=== PATIENT | female | born 1945 | race Two or more races ===

== ENCOUNTER 2020-02-11 14:45 | Outpatient (CLI) | payer MEDICARE | END 2020-02-11 14:46 | disposition critical access hospital (66) | LOC: EMS 14:45 | PROVIDERS: ATTEND Surgery | DX: R47.9 Unspecified speech disturbances (principal); R26.9 Unspecified abnormalities of gait and mobility | CPT/HCPCS: A0425; A0429 ==

== ENCOUNTER 2020-02-11 15:04 | Emergency (ER) | payer MEDICARE ==
[2020-02-11] MEDS ORDERED: IOVERSOL 320 100 ML VIAL IVP ONE ×2 (15:28→15:59)
--- NOTE | 2020-02-11 15:28 | ED Physician Documentation ---
History of Present Illness - Stated complaint Stated Complaint: SLURRED SPEECH - History obtained from History obtained from: Patient - History of Present Illness Timing: Today Pain level max: 0 Pain level now: 0 - Additonal information Additional information: 74-year-old female with a history of hypertension and COPD. She states that she does not take any medication at home because she does not like taking medication. She was having an argument today with her significant other when she developed a aphasia and states that she was slurring her speech like she was a drunken skeet operator. She states that this lasted for approximately an hour. She states that she has been having difficulty walking with her balance for the past several weeks. No numbness or tingling. No focal weakness. No facial droop. Currently asymptomatic. Review of Systems Ten Systems: 10 systems reviewed and negative Constitutional: denies: Fever, Chills Throat: denies: Sore throat Cardiac: denies: Chest pain / pressure Respiratory: denies: Cough : denies: Dysuria Skin: denies: Rash Musculoskeletal: denies: Neck pain, Back pain Neurologic: denies: Headache PD PAST MEDICAL HISTORY - Past Medical History Cardiovascular: Hypertension Respiratory: COPD - Present Medications Home Medications: Ambulatory Orders Medication Instructions Recorded Confirmed No Known Home Medications 02/11/20 02/11/20 - Allergies Allergies/Adverse Reactions: Allergies Allergy/AdvReac Type Severity Reaction Status Date / Time codeine Allergy Unknown Verified 02/11/20 15:21 - Living Situation Living Situation: reports: With family Living Arrangement: reports: At home - Social History Does the pt smoke?: Yes Smoking Status: Current every day smoker - Family History Family history: reports: Non contributory PD ED PE NORMAL - Vitals Vital signs reviewed: Yes - General General: Alert and oriented X 3, No acute distress, Well developed/nourished - HEENT HEENT: Moist mucous membranes, Pharynx benign - Neck Neck: Supple, no meningeal sign - Cardiac Cardiac: RRR - Respiratory Respiratory: No respiratory distress, Clear bilaterally - Abdomen Abdomen: Soft, Non tender, Non distended - Derm Derm: Warm and dry - Extremities Extremities: No deformity, No edema - Neuro Neuro: Alert and oriented X 3, 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, No motor deficit, No sensory deficit, Normal speech Eye Opening: Spontaneous Motor: Obeys Commands Verbal: Oriented GCS Score: 15 - Psych Psych: Normal mood, Normal affect Results - Vitals Vitals: Vital Signs - 24 hr 02/11/20 02/11/20 02/11/20 15:21 15:55 16:25 Temperature 36.9 C Heart Rate 86 80 79 Respiratory 20 13 21 Rate Blood Pressure 213/99 H 211/96 H 177/82 H O2 Saturation 99 99 96 02/11/20 02/11/20 16:30 17:00 Temperature 36.9 C Heart Rate 83 75 Respiratory 17 16 Rate Blood Pressure 177/93 H 190/94 H O2 Saturation 100 99 Oxygen O2 Source Room air - EKG (time done) 1510 Rate: Rate (enter#) (89) Rhythm: NSR, Other (PVC) [place]: Normal Intervals: Normal NM QRS: Normal Ischemia: Normal ST segments - Labs Labs: Laboratory Tests 02/11/20 02/11/20 02/11/20 15:29 16:10 16:10 WBC 4.7 L RBC 5.61 H Hgb 13.6 Hct 38.4 MCV 68.4 L MCH 24.2 L MCHC 35.4 RDW 15.6 H Plt Count 145 Neut # (Auto) Not Reportable Lymph # (Auto) Not Reportable [place] # (Auto) Not Reportable Eos # (Auto) Not Reportable Baso # (Auto) Not Reportable Absolute Nucleated RBC Not Reportable Total Counted 100 Band Neuts % (Manual) 0 Abnorm Lymph % (Manual) 0 Nucleated RBC % Not Reportable Neutrophils # (Manual) 1.3 L Lymphocytes # (Manual) 3.0 Monocytes # (Manual) 0.2 Eosinophils # (Manual) 0.1 Basophils # (Manual) 0.1 Differential Comment MANUAL DIFFERENTIAL Manual Slide Review Indicated WBC Morphology NORMAL APPEARANCE Platelet Estimate NORMAL (130-450,000) Platelet Morphology NORMAL APPEARANCE RBC Morph Micro Appear NORMAL APPEARANCE PT 12.4 INR 1.1 APTT 36.4 H Sodium Potassium Chloride Carbon Dioxide Anion Gap BUN Creatinine Estimated GFR (MDRD) Glucose Calcium Total Bilirubin AST ALT Alkaline Phosphatase Total Protein Albumin Globulin Albumin/Globulin Ratio Lipase Urine Color YELLOW Urine Clarity CLEAR Urine pH 7.0 Ur Specific [place] <=1.005 Urine Protein NEGATIVE Urine Glucose (UA) NEGATIVE Urine Ketones NEGATIVE Urine Occult Blood TRACE-INTA Urine Nitrite NEGATIVE Urine Bilirubin NEGATIVE Urine Urobilinogen 0.2 (NORMAL) Ur Leukocyte Esterase SMALL H Urine RBC 0-5 Urine WBC 4-5 Ur Squamous Epith Cells MANY Squamous H Urine Bacteria Rare Ur Microscopic Review INDICATED Urine Culture Comments NOT INDICATED 02/11/20 16:10 WBC RBC Hgb Hct MCV MCH MCHC RDW Plt Count Neut # (Auto) Lymph # (Auto) [place] # (Auto) Eos # (Auto) Baso # (Auto) Absolute Nucleated RBC Total Counted Band Neuts % (Manual) Abnorm Lymph % (Manual) Nucleated RBC % Neutrophils # (Manual) Lymphocytes # (Manual) Monocytes # (Manual) Eosinophils # (Manual) Basophils # (Manual) Differential Comment Manual Slide Review WBC Morphology Platelet Estimate Platelet Morphology RBC Morph Micro Appear PT INR APTT Sodium 139 Potassium 3.6 Chloride 101 Carbon Dioxide 28 Anion Gap 10.0 BUN 13 Creatinine 0.6 Estimated GFR (MDRD) 97 Glucose 106 H Calcium 8.8 Total Bilirubin 0.9 AST 13 ALT 11 Alkaline Phosphatase 75 Total Protein 7.2 Albumin 4.1 Globulin 3.1 Albumin/Globulin Ratio 1.3 Lipase 21 L Urine Color Urine Clarity Urine pH Ur Specific [place] Urine Protein Urine Glucose (UA) Urine Ketones Urine Occult Blood Urine Nitrite Urine Bilirubin Urine Urobilinogen Ur Leukocyte Esterase Urine RBC Urine WBC Ur Squamous Epith Cells Urine Bacteria Ur Microscopic Review Urine Culture Comments - Rads (name of study) CTA head Radiology: Prelim report reviewed, EMP read contemporaneously, See rad report CTA neck Radiology: Prelim report reviewed, EMP read contemporaneously, See rad report PD MEDICAL DECISION MAKING - ED course Complexity details: reviewed results, re-evaluated patient, considered differential, d/w patient ED course: Patient with symptoms of a TIA today. No acute findings on head CT, angiogram of the head and/or neck. Blood pressure decreased on its own. Given aspirin. She will start on a baby aspirin daily. She refuses to stay in the hospital for further work-up. MRI is not available here today, therefore she would need to be transferred and she does not want this either. Patient states that she will follow-up with her doctor on Thursday for an expedited work-up. Her ABCD 2 score is 4. Patient understands the risks of not staying in the hospital and accepts these risks. Patient counseled regarding signs and symptoms for which I believe and urgent re-evaluation would be necessary. Patient with good understanding of and agreement to plan and is comfortable going home at this time This document was made in part using voice recognition software. While efforts are made to proofread this document, sound alike and grammatical errors may occur. Urinalysis appears contaminated. No UTI symptoms Departure - Departure Disposition: 01 Home, Self Care Clinical Impression: Stroke-like symptoms, TIA (transient ischemic attack) Condition: Good Instructions: ED Transient Ischemic Attack Follow-Up: Rashida Gruber PA-C [Provider Admit Priv/Credential] - Within 3 Days Comments: You need to have an MRI performed as well as an echocardiogram of your heart. You need to start on a baby aspirin, 81 mg, daily. Return immediately for any recurrence or worsening of symptoms. You have chosen not to stay in the hospital tonight or be transferred to another facility for an expedited work-up. You do understand that there is a risk that a stroke could occur within the next few days while we are completing your work-up. Discharge Date/Time: 02/11/20 17:16 NIHSS - Time Time: 15:20 - Level of Consciousness Level of consciousness: (0) Alert, Keenly responsive LOC Questions: (0) Answers both Q's correct LOC Commands: (0) Performs both correctly - Gaze Best Gaze: (0) Normal - Visual Visual: (0) No loss - Facial Palsy Facial Palsy: (0) Normal, symmetrical movement - Motor Arms (both separate) Motor Arm (right): (0) No drift Motor Arm (left): (0) No drift - Motor Legs (both separate) Motor Leg (right): (0) No drift Motor Leg (left): (0) No drift - Limb Ataxia Limb Ataxia: (0) Absent - Sensory Sensory: (0) Normal - Best Language Best Language: (0) No aphasia - Dysarthria Dysarthria: (0) Normal - Extinction and Inattention (formally neg Extinction and inattention: (0) No abnormality - Total Score/Results Total Score/Result: 0
[2020-02-11 15:40] LABS: BILIRUBIN,URINE NEGATIVE (NEGATIVE); GLUCOSE, URINE (UA) NEGATIVE (NEGATIVE); KETONES,URINE (UA) NEGATIVE (NEGATIVE); LEUKOCYTE ESTERASE, URINE SMALL (NEGATIVE); NITRITE,URINE NEGATIVE (NEGATIVE); OCCULT BLOOD,URINE TRACE-INTA (NEGATIVE); PROTEIN,URINE NEGATIVE (NEGATIVE); UROBILINOGEN,URINE 0.2 (NORMAL) E.U./dL (NORMAL)
[2020-02-11 15:41] LABS: CLARITY,URINE CLEAR (CLEAR)
[2020-02-11 15:54] LABS: BACTERIA,URINE Rare /HPF (None Seen); RBC,URINE 0-5 /HPF (0-5); SQUAMOUS EPITHELIAL CELL,UR MANY Squamous (<= Few)
[2020-02-11 16:17] LABS: BASOPHILS % (AUTO) 1.1 %; HGB - HEMOGLOBIN 13.6 g/dL (12.0-16.0); LYMPHOCYTES % (AUTO) 59.3 %; MEAN CORPUSCULAR HEMOGLOBIN 24.2 pg (27.0-31.0); MEAN CORPUSCULAR HGB CONC 35.4 g/dL (32.0-36.0); MEAN CORPUSCULAR VOLUME 68.4 fL (81.0-99.0); MONOCYTES % (AUTO) 12.5 %; NEUTROPHILS % (AUTO) 24.1 %; PLT - PLATELET COUNT 145 10^3/uL (130-450); RED BLOOD COUNT 5.61 10^6/uL (4.20-5.40); RED CELL DISTRIBUTION WIDTH 15.6 % (12.0-15.0); WHITE BLOOD COUNT 4.7 x10^3/uL (4.8-10.8)
[2020-02-11 16:19] LABS: INR 1.1 (0.8-1.2); PT - PROTHROMBIN TIME 12.4 secs (9.9-12.6)
[2020-02-11 16:23] LABS: ABNORMAL LYMPHS % (MANUAL) 0 %; BAND NEUTROPHILS % (MANUAL) 0 %
[2020-02-11 16:28] LABS: ALBUMIN 4.1 g/dL (3.2-5.5); ALBUMIN/GLOBULIN RATIO 1.3 (1.0-2.2); BILIRUBIN,TOTAL 0.9 mg/dL (0.2-1.0); CALCIUM 8.8 mg/dL (8.5-10.3); CREATININE 0.6 mg/dL (0.4-1.0); TOTAL PROTEIN 7.2 g/dL (6.7-8.2)
[2020-02-11 16:31] LABS: PARTIAL THROMBOPLASTIN TIME 36.4 secs (24.9-33.3)
[2020-02-11 16:32] LABS: BASOPHILS # (MANUAL) 0.1 10^3/uL (0-0.1); BASOPHILS % (MANUAL) 2 %; DIFFERENTIAL COMMENT MANUAL DIFFERENTIAL; EOSINOPHILS # (MANUAL) 0.1 10^3/uL (0-0.7); LYMPHOCYTES % (MANUAL) 63 %; MONOCYTES # (MANUAL) 0.2 10^3/uL (0.0-1.0); PLATELET ESTIMATE, MANUAL NORMAL (130-450,000) (NORMAL); PLATELET MORPHOLOGY NORMAL APPEARANCE (NORMAL); RBC MORPHOLOGY (MULTIPLE) NORMAL APPEARANCE (NORMAL)
--- NOTE | 2020-02-11 16:38 | CT Report ---
Reason: slurred speech x 1 hour, ataxia Procedure Date: 02/11/2020 Accession Number: [id number] / [id number] Procedure: CT - ANGIO NECK W CPT Code: Final Report FULL RESULT: EXAM: CT ANGIOGRAM HEAD AND NECK. CT SCAN HEAD WITHOUT AND WITH CONTRAST. EXAM DATE: 02/11/2020 03:58 PM. CLINICAL HISTORY: Slurred speech x 1 hour, ataxia. COMPARISON: None available. TECHNIQUE: Routine axial helical CTA imaging was performed from the aortic arch through the [place] of [place]. Routine axial CT imaging of the head was performed prior to and following contrast administration. Reconstructions: Routine multiplanar 3D MIP reconstructions. IV contrast: 80 cc of Optiray 320. NASCET Criteria are used for stenosis measurements. In accordance with CT protocol optimization, one or more of the following dose reduction techniques were utilized for this exam: automated exposure control, adjustment of mA and/or KV based on patient size, or use of iterative reconstructive technique. FINDINGS: Non Contrast Head: There is no mass, mass effect, midline shift or abnormal extraaxial fluid collection. Size and configuration of the ventricles appear normal. There is no intracranial hemorrhage. Gillespie white matter differentiation is maintained. Ill-defined hypodensities in the periventricular cerebral white matter, nonspecific but most commonly represent chronic microvascular angiopathy. Brain stem and cerebellum appear unremarkable. Calvarium and skull base appear intact and normal. Orbits and extracranial soft tissue appear unremarkable. Paranasal sinuses and mastoid air cells appear well aerated. Post contrast CT Head: No abnormal enhancement. Gillespie white matter differentiation appear preserved. Dural venous sinus and deep cerebral veins appear normal. CTA HEAD: Anterior Circulation: There are 2 mm infundibuli for bilateral ophthalmic arteries. Subtle inferiorly projecting shallow 1.1 mm aneurysm from the distal M1 segment right MCA (image 94 series 15) with a 2 mm neck. Inferiorly projecting 2 mm saccular aneurysm projecting from the communicating segment right ICA ( sagittal image 86 series 15). The internal carotid arteries (ICA), middle cerebral arteries (MCA), and anterior cerebral arteries (CHRISTINA) are patent bilaterally. The anterior communicating artery (A-COM) appears patent. No other aneurysms, stenoses, or anatomic anomalies evident. Posterior Circulation: Moderate, 50% stenosis P1 P2 junction right RN ACLS with distal reconstitution. The superior vertebral artery, basilar, and posterior cerebral arteries (RN ACLS) are patent. Otherwise No aneurysms, stenoses, or anomalies evident. The posterior communicating arteries (P-COM) are patent on the left, hypoplastic on the right (-type left RN ACLS). CTA NECK: Right Carotid: The common carotid, internal carotid, and external carotid arteries are widely patent. No dissection, significant atherosclerotic plaque, or calcification identified. No significant stenosis by NASCET criteria. Left Carotid: The common carotid, internal carotid, and external carotid arteries are widely patent. No dissection, significant atherosclerotic plaque, or calcification identified. No significant stenosis by NASCET criteria. Vertebrals: The vertebrobasilar system shows no stenosis, dissection, aneurysm, or significant atherosclerotic disease. Visible aortic arch and pulmonary artery appear normal. Other: Multilevel degenerative changes of the cervical spine most pronounced at C4-C5, C5-C6. Mild canal narrowing at C5-C6. Emphysematous changes of the visible lungs. IMPRESSION: CT SCAN HEAD: 1. Mild diffuse cerebral volume loss. 2. Chronic microvascular white matter changes. 3. No intercranial hemorrhage, midline shift or hydrocephalus. 4. No abnormal enhancement. Normal enhancement within the dural venous sinus. CT ANGIOGRAM NECK: 1. Atherosclerotic calcifications of bilateral carotid bifurcations without significant stenosis. 2. No significant cervical carotid or vertebral artery stenosis. No evidence for dissection. 3. Centrilobular emphysema of the visible lungs. CT ANGIOGRAM HEAD: 1. Moderate 50% stenosis P1 P2 junction right RN ACLS. -type left RN ACLS. 2. Inferiorly projecting 2 mm saccular aneurysm from the communicating segment of the right ICA. More subtle 1 mm wide neck aneurysm inferiorly projecting from the distal M1 segment right MCA. 3. No significant anterior circulation stenosis. No evidence for large vessel occlusion. RADIA
--- NOTE | 2020-02-11 16:38 | CT Report ---
Reason: slurred speech x 1 hour, ataxia Procedure Date: 02/11/2020 Accession Number: [id number] / [id number] Procedure: CT - ANGIO HEAD W/WO CPT Code: Final Report FULL RESULT: EXAM: CT ANGIOGRAM HEAD AND NECK. CT SCAN HEAD WITHOUT AND WITH CONTRAST. EXAM DATE: 02/11/2020 03:58 PM. CLINICAL HISTORY: Slurred speech x 1 hour, ataxia. COMPARISON: None available. TECHNIQUE: Routine axial helical CTA imaging was performed from the aortic arch through the [place] of [place]. Routine axial CT imaging of the head was performed prior to and following contrast administration. Reconstructions: Routine multiplanar 3D MIP reconstructions. IV contrast: 80 cc of Optiray 320. NASCET Criteria are used for stenosis measurements. In accordance with CT protocol optimization, one or more of the following dose reduction techniques were utilized for this exam: automated exposure control, adjustment of mA and/or KV based on patient size, or use of iterative reconstructive technique. FINDINGS: Non Contrast Head: There is no mass, mass effect, midline shift or abnormal extraaxial fluid collection. Size and configuration of the ventricles appear normal. There is no intracranial hemorrhage. Gillespie white matter differentiation is maintained. Ill-defined hypodensities in the periventricular cerebral white matter, nonspecific but most commonly represent chronic microvascular angiopathy. Brain stem and cerebellum appear unremarkable. Calvarium and skull base appear intact and normal. Orbits and extracranial soft tissue appear unremarkable. Paranasal sinuses and mastoid air cells appear well aerated. Post contrast CT Head: No abnormal enhancement. Gillespie white matter differentiation appear preserved. Dural venous sinus and deep cerebral veins appear normal. CTA HEAD: Anterior Circulation: There are 2 mm infundibuli for bilateral ophthalmic arteries. Subtle inferiorly projecting shallow 1.1 mm aneurysm from the distal M1 segment right MCA (image 94 series 15) with a 2 mm neck. Inferiorly projecting 2 mm saccular aneurysm projecting from the communicating segment right ICA ( sagittal image 86 series 15). The internal carotid arteries (ICA), middle cerebral arteries (MCA), and anterior cerebral arteries (CHRISTINA) are patent bilaterally. The anterior communicating artery (A-COM) appears patent. No other aneurysms, stenoses, or anatomic anomalies evident. Posterior Circulation: Moderate, 50% stenosis P1 P2 junction right [employer] with distal reconstitution. The superior vertebral artery, basilar, and posterior cerebral arteries ([employer]) are patent. Otherwise No aneurysms, stenoses, or anomalies evident. The posterior communicating arteries (P-COM) are patent on the left, hypoplastic on the right (-type left [employer]). CTA NECK: Right Carotid: The common carotid, internal carotid, and external carotid arteries are widely patent. No dissection, significant atherosclerotic plaque, or calcification identified. No significant stenosis by NASCET criteria. Left Carotid: The common carotid, internal carotid, and external carotid arteries are widely patent. No dissection, significant atherosclerotic plaque, or calcification identified. No significant stenosis by NASCET criteria. Vertebrals: The vertebrobasilar system shows no stenosis, dissection, aneurysm, or significant atherosclerotic disease. Visible aortic arch and pulmonary artery appear normal. Other: Multilevel degenerative changes of the cervical spine most pronounced at C4-C5, C5-C6. Mild canal narrowing at C5-C6. Emphysematous changes of the visible lungs. IMPRESSION: CT SCAN HEAD: 1. Mild diffuse cerebral volume loss. 2. Chronic microvascular white matter changes. 3. No intercranial hemorrhage, midline shift or hydrocephalus. 4. No abnormal enhancement. Normal enhancement within the dural venous sinus. CT ANGIOGRAM NECK: 1. Atherosclerotic calcifications of bilateral carotid bifurcations without significant stenosis. 2. No significant cervical carotid or vertebral artery stenosis. No evidence for dissection. 3. Centrilobular emphysema of the visible lungs. CT ANGIOGRAM HEAD: 1. Moderate 50% stenosis P1 P2 junction right [employer]. -type left [employer]. 2. Inferiorly projecting 2 mm saccular aneurysm from the communicating segment of the right ICA. More subtle 1 mm wide neck aneurysm inferiorly projecting from the distal M1 segment right MCA. 3. No significant anterior circulation stenosis. No evidence for large vessel occlusion. RADIA
[2020-02-11] MEDS ORDERED: ASPIRIN CHEW 81 MG TABLET PO STA (17:02)
[2020-02-11 17:05] VITALS: BP 190/94
== END 2020-02-11 17:16 | disposition home or self-care (01) ==
LOC: EDUNIT# → ED 15:04
DX: G45.9 Transient cerebral ischemic attack, unspecified (principal); I49.3 Ventricular premature depolarization; I10 Essential (primary) hypertension; J44.9 Chronic obstructive pulmonary disease, unspecified; F17.200 Nicotine dependence, unspecified, uncomplicated; Z91.14 Patient's other noncompliance with medication regimen
CPT/HCPCS: 36415; 70496; 70498; 80053; 81001; 83690; 85025; 85610; 85730; 93005; 99284; A9270; Q9967; 81003; 87086

== ENCOUNTER 2020-03-21 07:46 | Outpatient (CLI) | payer MEDICARE ==
--- NOTE | 2020-03-21 09:47 | MRI Report ---
PROCEDURE: Brain W/O INDICATIONS: TIA TECHNIQUE: Noncontrast axial T1 spin echo, axial T2 fast spin echo, sagittal and axial FLAIR, coronal T2 fast sp in echo, axial gradient echo, axial diffusion and ADC through the brain. COMPARISON: None. FINDINGS: Image quality: Excellent. CSF Spaces: Basal cisterns are patent. No extra-axial fluid collections. Ventricles are normal in size and shape. Brain: There is global cerebral volume loss with passive expansion of the ventricles and extra-axial spaces. Severe chronic microvascular ischemic changes are present, manifest as diffuse and confluent FLAIR/T2 hyperintense signal throughout the subcortical, deep, and periventricular white matter of janna th cerebral hemispheres. In addition, there is subtle increase in the FLAIR signal of the insular cor tices and subcortical white matter, as well as the left greater than right mesial temporal lobe allen x and subcortical white matter. No restricted diffusion to indicate recent ischemia. No abnormal brai n parenchymal susceptibility. The major intracranial vascular flow-related signal voids are maintaine d. Skull and face: Calvarium has normal marrow signal. Orbits appear normal. Sinuses: Sinuses and mastoids are clear. IMPRESSION: 1. Increased FLAIR signal of the cortices and subcortical white matter in the left greater than right insulae and mesial temporal lobes. This is a nonspecific finding, but in the appropriate clinical se tting could represent herpetic encephalitis, limbic encephalitis, Alzheimer disease, or frontotempora l dementia. 2. Global cerebral volume loss with advanced/severe chronic microvascular ischemic change. 3. No acute ischemia. Reviewed by: Jaya Moreira MD on 03/21/2020 9:46 AM PDT Approved by: Jaya Moreira MD on 03/21/2020 9:46 AM PDT Station ID: [id number]
== END 2020-03-21 07:47 | disposition home or self-care (01) ==
LOC: DI 07:46
PROVIDERS: ATTEND Family Medicine
DX: G45.9 Transient cerebral ischemic attack, unspecified (principal); R93.89 Abnormal findings on diagnostic imaging of other specified body structures
CPT/HCPCS: 70551; 93306

== ENCOUNTER 2020-12-27 08:34 | Outpatient (CLI) | payer MEDICARE ==
[2020-12-27 12:11] LABS: ALBUMIN 4.5 g/dL (3.2-5.5); ALBUMIN/GLOBULIN RATIO 1.6 (1.0-2.2); ALKALINE PHOSPHATASE 66 IU/L (42-121); ALT ALANINE AMINOTRANSFERASE 15 IU/L (10-60); AST ASPARTATE AMINOTRANSFERASE 20 IU/L (10-42); BILIRUBIN,TOTAL 1.1 mg/dL (0.2-1.0); BUN - BLOOD UREA NITROGEN 9 mg/dL (6-20); CALCIUM 9.7 mg/dL (8.5-10.3); CARBON DIOXIDE - CO2 33 mmol/L (21-32); CHLORIDE 102 mmol/L (101-111); CHOL/HDL RATIO 3.1 (<4.4); CHOLESTEROL 203 mg/dL; CREATININE 0.6 mg/dL (0.4-1.0); GFR - MDRD 97 (>89); GLUCOSE 95 mg/dL (70-100); HDL CHOLESTEROL 66 mg/dL; LDL CHOLESTEROL,CALCULATED 118 mg/dL; LDL/HDL RATIO 1.8 (<4.4); POTASSIUM 3.5 mmol/L (3.5-5.0); SODIUM 142 mmol/L (135-145); TOTAL PROTEIN 7.4 g/dL (6.7-8.2); TRIGLYCERIDES 94 mg/dL; VLDL CHOLESTEROL 19 mg/dL
[2020-12-27 12:18] LABS: THYROID STIMULATING HORMONE 0.55 uIU/mL (0.34-5.60)
[2020-12-27 12:25] LABS: ESTIMATED AVERAGE GLUCOSE 111 mg/dL (70-100); HEMOGLOBIN A1c% 5.5 % (4.27-6.07)
[2020-12-27 13:13] LABS: BASOPHILS % (AUTO) 0.8 %; EOSINOPHILS # (AUTO) 0.2 10^3/uL (0.0-0.7); EOSINOPHILS % (AUTO) 5.2 %; HCT - HEMATOCRIT 39.7 % (37.0-47.0); LYMPHOCYTES # (AUTO) 2.2 10^3/uL (1.5-3.5); LYMPHOCYTES % (AUTO) 56.9 %; MEAN CORPUSCULAR HEMOGLOBIN 24.3 pg (27.0-31.0); MEAN CORPUSCULAR HGB CONC 35.3 g/dL (32.0-36.0); MEAN CORPUSCULAR VOLUME 68.8 fL (81.0-99.0); MONOCYTES # (AUTO) 0.6 10^3/uL (0.0-1.0); MONOCYTES % (AUTO) 15.3 %; NEUTROPHILS # (AUTO) 0.8 10^3/uL (1.5-6.6); NEUTROPHILS % (AUTO) 21.8 %; PLT - PLATELET COUNT 157 10^3/uL (130-450); RED BLOOD COUNT 5.77 10^6/uL (4.20-5.40); RED CELL DISTRIBUTION WIDTH 15.9 % (12.0-15.0); WHITE BLOOD COUNT 3.9 x10^3/uL (4.8-10.8)
== END 2020-12-27 08:35 | disposition home or self-care (01) ==
LOC: LAB.N 08:34
PROVIDERS: ATTEND Family Medicine
DX: I10 Essential (primary) hypertension (principal); F41.9 Anxiety disorder, unspecified; K21.9 Gastro-esophageal reflux disease without esophagitis; M50.30 Other cervical disc degeneration, unspecified cervical region; R73.9 Hyperglycemia, unspecified
CPT/HCPCS: 36415; 80053; 80061; 83036; 83721; 84443; 85025

== ENCOUNTER 2021-07-15 07:42 | Outpatient (CLI) | payer MEDICARE ==
[2021-07-15 12:22] LABS: BASOPHILS % (AUTO) 1.6 %; EOSINOPHILS % (AUTO) 5.5 %; HCT - HEMATOCRIT 39.6 % (37.0-47.0); HGB - HEMOGLOBIN 13.8 g/dL (12.0-16.0); LYMPHOCYTES % (AUTO) 47.4 %; MEAN CORPUSCULAR HEMOGLOBIN 24.2 pg (27.0-31.0); MEAN CORPUSCULAR HGB CONC 34.8 g/dL (32.0-36.0); MEAN CORPUSCULAR VOLUME 69.4 fL (81.0-99.0); MONOCYTES % (AUTO) 15.4 %; NEUTROPHILS % (AUTO) 29.9 %; PLT - PLATELET COUNT 177 10^3/uL (130-450); RED BLOOD COUNT 5.71 10^6/uL (4.20-5.40); RED CELL DISTRIBUTION WIDTH 16.6 % (12.0-15.0); WHITE BLOOD COUNT 4.9 x10^3/uL (4.8-10.8)
[2021-07-15 12:27] LABS: ABNORMAL LYMPHS % (MANUAL) 0 %
[2021-07-15 12:34] LABS: ALBUMIN 4.5 g/dL (3.2-5.5); ALBUMIN/GLOBULIN RATIO 1.7 (1.0-2.2); BILIRUBIN,TOTAL 1.4 mg/dL (0.2-1.0); CALCIUM 9.6 mg/dL (8.5-10.3); CREATININE 0.6 mg/dL (0.4-1.0); POTASSIUM 3.4 mmol/L (3.5-5.0); TOTAL PROTEIN 7.2 g/dL (6.7-8.2)
[2021-07-15 13:01] LABS: BAND NEUTROPHILS % (MANUAL) 1 %; BASOPHILS # (MANUAL) 0.1 10^3/uL (0-0.1); BASOPHILS % (MANUAL) 2 %; EOSINOPHILS # (MANUAL) 0.3 10^3/uL (0-0.7); LYMPHOCYTES # (MANUAL) 2.9 10^3/uL (1.5-3.5); LYMPHOCYTES % (MANUAL) 46 %; MONOCYTES # (MANUAL) 0.3 10^3/uL (0.0-1.0); NEUTROPHILS # (MANUAL) 1.3 10^3/uL (1.5-6.6); REACTIVE LYMPHS % (MANUAL) 14 %
[2021-07-15 13:05] LABS: PLATELET ESTIMATE, MANUAL NORMAL (130-450,000) (NORMAL); PLATELET MORPHOLOGY 2+ GIANT PLATELETS (NORMAL); WBC MORPHOLOGY (MULTIPLE) NORMAL APPEARANCE (NORMAL)
[2021-07-15 13:07] LABS: DIFFERENTIAL COMMENT MANUAL DIFFERENTIAL
== END 2021-07-15 07:43 | disposition home or self-care (01) ==
LOC: LAB.N 07:42
PROVIDERS: ATTEND Family Medicine
DX: R53.83 Other fatigue (principal); R53.81 Other malaise; I10 Essential (primary) hypertension; Z85.118 Personal history of other malignant neoplasm of bronchus and lung
CPT/HCPCS: 36415; 80053; 85025

== ENCOUNTER 2021-07-16 08:18 | Outpatient (CLI) | payer MEDICARE ==
--- NOTE | 2021-07-18 02:21 | XRAY Report ---
PROCEDURE: Lumbar Spine Complete INDICATIONS: PAIN TECHNIQUE: 5 views of the lumbar spine were acquired. Images became available for interpretation on 07/17/2021 COMPARISON: None. FINDINGS: Bones: 5 [id number] vertebrae are present. There is normal bony alignment. No vertebral body compression fractures. No suspicious bony lesions. Moderate to severe disc and foraminal narrowing are noted L4-5, moderate L5-S1. Nonbridging multilevel anterior osteophytes are present within the lo wer lumbar spine. Soft tissues: Overlying bowel gas pattern is normal. No suspicious soft tissue calcifications. IMPRESSION: Degenerative change most notable at L4-5, L5-S1. Reviewed by: Michelle Villa MD on 07/18/2021 1:21 AM PDT Approved by: Michelle Villa MD on 07/18/2021 1:21 AM PDT Station ID: [id number]
== END 2021-07-16 08:19 | disposition home or self-care (01) ==
LOC: DI.N 08:18
PROVIDERS: ATTEND Family Medicine
DX: M47.817 Spondylosis without myelopathy or radiculopathy, lumbosacral region (principal)

== ENCOUNTER 2021-10-11 07:50 | Outpatient (CLI) | payer MEDICARE ==
--- NOTE | 2021-10-11 17:12 | XRAY Report ---
PROCEDURE: Abdomen 2 View X-Ray INDICATIONS: ABD TENDERNESS, RIGHT LOWER QUAD TECHNIQUE: 1 view of the abdomen were acquired. COMPARISON: None FINDINGS: Surgical changes and devices: None. Bowel: No pneumoperitoneum. The bowel gas pattern is normal. Soft tissues: No masses; visualized solid organ contours appear normal in size. No suspicious abdom inal calcifications. Bones: No suspicious bony abnormalities. IMPRESSION: Moderate stool noted throughout the colon. Moderate amount of stool throughout the colon . No acute disease process. If there is is continued clinical concern for abdominal pathology includi ng appendicitis consider CT scan of the abdomen/pelvis for additional evaluation. Reviewed by: Taya Enrique MD, PhD on 10/11/2021 5:11 PM PST Approved by: Taya Enrique MD, PhD on 10/11/2021 5:11 PM PST Station ID: [id number]
== END 2021-10-11 07:51 | disposition home or self-care (01) ==
LOC: DI.N 07:50
PROVIDERS: ATTEND Family Medicine
DX: R10.813 Right lower quadrant abdominal tenderness (principal)

== ENCOUNTER 2022-02-17 08:00 | Outpatient (CLI) | payer MEDICARE ==
--- NOTE | 2022-02-17 11:56 | XRAY Report ---
PROCEDURE: Chest 2 View X-Ray INDICATIONS: POSSIBLE PNEUMONIA TECHNIQUE: 2 view(s) of the chest. COMPARISON: None. FINDINGS: Surgical changes and devices: None. Lungs and pleura: Pulmonary hyperinflation and chronic interstitial changes noted without focal infil trate, pneumothorax or pleural effusion. Mediastinum: Mediastinal contours are normal. Heart size is normal. Bones and chest wall: No suspicious bony abnormalities. Soft tissues appear unremarkable. Generali zed decreased osseous mineralization present. IMPRESSION: Hyperinflation and chronic interstitial changes Reviewed by: Ang Hoyos MD on 02/17/2022 10:55 AM AGNES Approved by: Ang Hoyos MD on 02/17/2022 10:55 AM [place] Station ID: [id number]
== END 2022-02-17 23:59 | disposition home or self-care (01) ==
LOC: DI.N 08:00
PROVIDERS: ATTEND Physician Assistant Medical
DX: J18.9 Pneumonia, unspecified organism (principal)

== ENCOUNTER 2022-04-11 07:10 | Outpatient (CLI) | payer MEDICARE ==
[2022-04-11 12:11] LABS: BASOPHILS # (AUTO) 0.1 10^3/uL (0.0-0.1); BASOPHILS % (AUTO) 1.2 %; EOSINOPHILS # (AUTO) 0.5 10^3/uL (0.0-0.7); EOSINOPHILS % (AUTO) 9.6 %; HCT - HEMATOCRIT 38.3 % (37.0-47.0); HGB - HEMOGLOBIN 13.5 g/dL (12.0-16.0); LYMPHOCYTES # (AUTO) 3.4 10^3/uL (1.5-3.5); LYMPHOCYTES % (AUTO) 60.4 %; MEAN CORPUSCULAR HEMOGLOBIN 24.4 pg (27.0-31.0); MEAN CORPUSCULAR HGB CONC 35.2 g/dL (32.0-36.0); MEAN CORPUSCULAR VOLUME 69.1 fL (81.0-99.0); MONOCYTES # (AUTO) 0.8 10^3/uL (0.0-1.0); MONOCYTES % (AUTO) 13.7 %; NEUTROPHILS # (AUTO) 0.8 10^3/uL (1.5-6.6); NEUTROPHILS % (AUTO) 14.9 %; PLT - PLATELET COUNT 217 10^3/uL (130-450); RED BLOOD COUNT 5.54 10^6/uL (4.20-5.40); RED CELL DISTRIBUTION WIDTH 16.4 % (12.0-15.0); WHITE BLOOD COUNT 5.6 x10^3/uL (4.8-10.8)
[2022-04-11 12:41] LABS: ESTIMATED AVERAGE GLUCOSE 111 mg/dL (70-100); HEMOGLOBIN A1c% 5.5 % (4.27-6.07)
[2022-04-11 12:42] LABS: ALBUMIN/GLOBULIN RATIO 1.4 (1.0-2.2); ALKALINE PHOSPHATASE 64 IU/L (42-121); ALT ALANINE AMINOTRANSFERASE 16 IU/L (10-60); AST ASPARTATE AMINOTRANSFERASE 21 IU/L (10-42); BILIRUBIN,TOTAL 1.5 mg/dL (0.2-1.0); BUN - BLOOD UREA NITROGEN 11 mg/dL (6-20); CALCIUM 9.4 mg/dL (8.5-10.3); CARBON DIOXIDE - CO2 32 mmol/L (21-32); CHLORIDE 102 mmol/L (101-111); CHOL/HDL RATIO 2.2 (<4.4); CHOLESTEROL 166 mg/dL; CREATININE 0.7 mg/dL (0.4-1.0); GFR - MDRD 81 (>89); GLUCOSE 91 mg/dL (70-100); HDL CHOLESTEROL 74 mg/dL; LDL CHOLESTEROL,CALCULATED 77 mg/dL; POTASSIUM 3.6 mmol/L (3.5-5.0); SODIUM 142 mmol/L (135-145); TOTAL PROTEIN 6.8 g/dL (6.7-8.2); TRIGLYCERIDES 77 mg/dL; VLDL CHOLESTEROL 15 mg/dL
[2022-04-11 12:43] LABS: THYROID STIMULATING HORMONE 0.75 uIU/mL (0.34-5.60)
== END 2022-04-11 07:11 | disposition home or self-care (01) ==
LOC: LAB.N 07:10
PROVIDERS: ATTEND Family Medicine
DX: I10 Essential (primary) hypertension (principal); K59.00 Constipation, unspecified; R73.9 Hyperglycemia, unspecified; J44.9 Chronic obstructive pulmonary disease, unspecified; F41.9 Anxiety disorder, unspecified; G45.9 Transient cerebral ischemic attack, unspecified; R00.2 Palpitations; M47.9 Spondylosis, unspecified
CPT/HCPCS: 36415; 80053; 80061; 83036; 83721; 84443; 85025

== ENCOUNTER 2023-02-25 08:03 | Outpatient (CLI) | payer MEDICARE ==
--- NOTE | 2023-02-25 13:12 | DEXA Report ---
PROCEDURE: Dexa Spine and/or Hip INDICATIONS: POST MENOPAUSAL TECHNIQUE: Dual energy x-ray absorptiometry (DXA) was performed on a [employer] System. Regions measur ed are the AP Spine, femoral neck, and if needed forearm. COMPARISON: DEXA 05/04/2007. FINDINGS: Lumbar Spine: Bone Mineral Density 1.186 g/cm/cm, T score 0.0. Since the most recent prior study, there has been a statistically significant increase in bone mineral density by 14.4 percent. However, this could be d ue to osteophytosis. Left Femoral Neck: Bone Mineral Density 0.877 g/cm/cm, T score -1.2. Left Hip: Bone Mineral Density 0.923 g/cm/cm, T score -0.7. Since the most recent prior study, there has been a statistically significant decrease in bone mineral density by 13.8 percent. (T score greater or equal to -1.0: NORMAL) (T score from -1.1 to -2.4: OSTEOPENIA) (T score less than or equal to -2.5 to: OSTEOPOROSIS) Impression: By WHO criteria, this patient has low bone density (osteopenia). Interval statistical increase in bone mineral density of the lumbar spine. Interval statistical decrease in bone mineral density of the hip. Patients with diagnosis of osteoporosis or osteopenia should have regular bone mineral density assess ment. For those eligible for Medicare, routine testing is allowed once every 2 years. Testing frequ ency can be increased for patients who have rapidly progressing disease or for those who are receivin g medical therapy to restore bone mass. Reviewed by: Homero Villanueva MD on 02/25/2023 1:11 PM PDT Approved by: Homero Villanueva MD on 02/25/2023 1:11 PM PDT Station ID: [id number]
== END 2023-02-25 08:04 | disposition home or self-care (01) ==
LOC: DI 08:03
PROVIDERS: ATTEND Family Medicine
DX: Z78.0 Asymptomatic menopausal state (principal); M85.80 Other specified disorders of bone density and structure, unspecified site

== ENCOUNTER 2023-04-07 10:38 | Emergency (ER) | payer MEDICARE ==
[2023-04-07 11:37] LABS: EOSINOPHILS % (AUTO) 4.5 %; HCT - HEMATOCRIT 39.6 % (37.0-47.0); HGB - HEMOGLOBIN 13.8 g/dL (12.0-16.0); LYMPHOCYTES % (AUTO) 43.3 %; MEAN CORPUSCULAR HEMOGLOBIN 23.7 pg (27.0-31.0); MEAN CORPUSCULAR HGB CONC 34.8 g/dL (32.0-36.0); PLT - PLATELET COUNT 236 10^3/uL (130-450); RED BLOOD COUNT 5.82 10^6/uL (4.20-5.40); RED CELL DISTRIBUTION WIDTH 17.1 % (12.0-15.0); WHITE BLOOD COUNT 5.8 x10^3/uL (4.8-10.8)
[2023-04-07 11:40] LABS: ABNORMAL LYMPHS % (MANUAL) 0 %
[2023-04-07 11:51] LABS: ALBUMIN 4.3 g/dL (3.2-5.5); ALBUMIN/GLOBULIN RATIO 1.4 (1.0-2.2); CALCIUM 9.8 mg/dL (8.5-10.3); CREATININE 0.6 mg/dL (0.6-1.3); POTASSIUM 4.4 mmol/L (3.5-4.5); TOTAL PROTEIN 7.3 g/dL (6.4-8.9)
--- NOTE | 2023-04-07 12:04 | ED Physician Documentation ---
PD HPI ABD PAIN - Stated complaint Stated Complaint: RT SIDE ABD PX - Chief complaint Chief Complaint: Abd Pain - History obtained from History obtained from: Patient - Additional information Additional information: This is a sarah 77-year-old woman who had a remote open cholecystectomy about 40 years ago and has never had a colonoscopy. The last 2 months she has been more flatulent than normal and she tried Gas-X without relief. About 2 weeks ago started develop right lower quadrant pain which is worse in supine position. Its been generally getting worse but declines pain medication for this at this juncture. She feels bloated with it. No nausea. PD PAST MEDICAL HISTORY - Past Medical History Cardiovascular: Hypertension Respiratory: COPD Neuro: None Endocrine/Autoimmune: None GI: None [employer]: None : None HEENT: None Psych: Anxiety Musculoskeletal: None Derm: None - Present Medications Home Medications: Ambulatory Orders Medication Instructions Recorded Confirmed Aspirin [Aspirin EC] 81 mg PO DAILY 04/07/23 04/07/23 Calcium Carbonate [Calcium] 600 mg PO DAILY 04/07/23 04/07/23 Lisinopril [Zestril] 10 mg PO BID 04/07/23 04/07/23 Pregabalin [Lyrica] 75 mg PO BID 04/07/23 04/07/23 Simvastatin [Zocor] 20 mg PO BID 04/07/23 04/07/23 hydroCHLOROthiazide [Hydrodiuril] 12.5 mg PO BID 04/07/23 04/07/23 polyethylene glycoL 3350(BULK) 17 gm PO DAILY PRN #1 each 04/07/23 [Miralax] - Allergies Allergies/Adverse Reactions: Allergies Allergy/AdvReac Type Severity Reaction Status Date / Time codeine Allergy Unknown Verified 04/07/23 11:09 - Social History Does the pt smoke?: Yes Smoking Status: Current every day smoker PD ED PE NORMAL - Vitals Vital signs reviewed: Yes - General General: Alert and oriented X 3, No acute distress - Abdomen Abdomen: Other (Hyperactive bowel sounds, nontender without surgical signs.) - Neuro Neuro: Alert and oriented X 3, Normal speech Results - Vitals Vitals: Vital Signs - 24 hr 04/07/23 04/07/23 04/07/23 11:05 13:10 13:56 Temperature 36.4 C L Heart Rate 78 77 Respiratory 16 18 18 Rate Blood Pressure 153/83 H 175/84 H 161/87 H O2 Saturation 98 98 97 Oxygen O2 Source Room air - Labs Labs: Laboratory Tests 04/07/23 04/07/23 04/07/23 11:10 11:31 11:31 WBC 5.8 RBC 5.82 H Hgb 13.8 Hct 39.6 MCV 68.0 L MCH 23.7 L MCHC 34.8 RDW 17.1 H Plt Count 236 Neut # (Auto) Not Reportable Lymph # (Auto) Not Reportable [place] # (Auto) Not Reportable Eos # (Auto) Not Reportable Baso # (Auto) Not Reportable Absolute Nucleated RBC Not Reportable Total Counted 100 Band Neuts % (Manual) 4 Reactive Lymphs % (Man) 24 Abnorm Lymph % (Manual) 0 Nucleated RBC % Not Reportable Neutrophils # (Manual) 1.9 Lymphocytes # (Manual) 3.2 Monocytes # (Manual) 0.5 Eosinophils # (Manual) 0.2 Basophils # (Manual) 0.1 Differential Comment MANUAL DIFFERENTIAL WBC Morphology 1+ VACUOLATION Platelet Morphology 1+ GIANT PLATELETS RBC Morph Micro Appear 2+ MICROCYTOSIS Sodium 142 Potassium 4.4 Chloride 106 Carbon Dioxide 34 H Anion Gap 2.0 L BUN 10 Creatinine 0.6 Estimated GFR (MDRD) 96 Glucose 91 Calcium 9.8 Total Bilirubin 1.0 AST 17 ALT 10 Alkaline Phosphatase 69 Total Protein 7.3 Albumin 4.3 Globulin 3.0 Albumin/Globulin Ratio 1.4 Lipase 38 Urine Color YELLOW Urine Clarity CLEAR Urine pH 7.0 Ur Specific [place] <=1.005 Urine Protein NEGATIVE Urine Glucose (UA) NEGATIVE Urine Ketones NEGATIVE Urine Occult Blood NEGATIVE Urine Nitrite NEGATIVE Urine Bilirubin NEGATIVE Urine Urobilinogen 0.2 (NORMAL) Ur Leukocyte Esterase NEGATIVE Ur Microscopic Review NOT INDICATED Urine Culture Comments NOT INDICATED - Rads (name of study) CT a/p Relevant Findings:: Final report received, EMP independent interpretation of test PD Medical Decision Making - ED course ED course: 77-year-old woman with ongoing bloating, gassiness and abdominal pain with very benign examination here. Work-up demonstrates normal CBC, normal CMP, normal urinalysis. CT scan demonstrating numerous incidental findings which were discussed with her but feel that that the obstipation is likely the cause of her current pain and we will start some MiraLAX. Reevaluation for the adrenal nodules and pulmonary nodules was advised and patient voices understanding and she was also given a copy of her CAT scan read. Departure - Departure Disposition: 01 Home, Self Care Clinical Impression: Constipation Qualifiers: Constipation type: unspecified constipation type Qualified Code(s): K59.00 - Constipation, unspecified Abdominal pain Qualifiers: Abdominal location: right lower quadrant Qualified Code(s): R10.31 - Right lower quadrant pain Condition: Good Record reviewed to determine appropriate education?: Yes Instructions: ED Abdominal Pain Female Non-Specific Abdominal Pain, ED Constipation Prescriptions: polyethylene glycoL 3350(BULK) [Miralax] 17 gm PO DAILY PRN #1 each PRN Reason: Constipation Comments: As discussed, I think the main cause of your pain today was actually con stipation with fair amount of stool especially on the right side. I am prescribing a stronger laxative for this that can be taken up to 4 times a day. Pain should resolve once you are cleaned out. This is a good reminder that you are well overdue for a colonoscopy. Talk with your primary care physician about a referral for that. There were incidental findings on the CT scan, the main one needing follow-up is adrenal nodularity especially on the left, this will require further imaging for a small risk of malignancy and should be discussed with your physician. There is also a 4 mm left lung nodule, consider repeat CT scanning in 6 to 12 months to assess and confirm stability. Return in 24 hours once you are cleaned out if pain is not much better. Forms: PCP List Discharge Date/Time: 04/07/23 13:57
[2023-04-07 12:13] LABS: BAND NEUTROPHILS % (MANUAL) 4 %; BASOPHILS # (MANUAL) 0.1 10^3/uL (0-0.1); BASOPHILS % (MANUAL) 1 %; DIFFERENTIAL COMMENT MANUAL DIFFERENTIAL; EOSINOPHILS # (MANUAL) 0.2 10^3/uL (0-0.7); LYMPHOCYTES # (MANUAL) 3.2 10^3/uL (1.5-3.5); LYMPHOCYTES % (MANUAL) 31 %; MONOCYTES # (MANUAL) 0.5 10^3/uL (0.0-1.0); NEUTROPHILS # (MANUAL) 1.9 10^3/uL (1.5-6.6); REACTIVE LYMPHS % (MANUAL) 24 %
[2023-04-07 12:14] LABS: PLATELET MORPHOLOGY 1+ GIANT PLATELETS (NORMAL); WBC MORPHOLOGY (MULTIPLE) 1+ VACUOLATION (NORMAL)
[2023-04-07] MEDS ORDERED: iohexoL-300 100 ML VIAL ONE (12:16)
[2023-04-07 12:24] LABS: BILIRUBIN,URINE NEGATIVE (NEGATIVE); GLUCOSE, URINE (UA) NEGATIVE (NEGATIVE); KETONES,URINE (UA) NEGATIVE (NEGATIVE); LEUKOCYTE ESTERASE, URINE NEGATIVE (NEGATIVE); NITRITE,URINE NEGATIVE (NEGATIVE); OCCULT BLOOD,URINE NEGATIVE (NEGATIVE); PROTEIN,URINE NEGATIVE (NEGATIVE); UROBILINOGEN,URINE 0.2 (NORMAL) E.U./dL (NORMAL)
[2023-04-07 12:26] LABS: CLARITY,URINE CLEAR (CLEAR)
--- NOTE | 2023-04-07 13:13 | CT Report ---
PROCEDURE: ABDOMEN/PELVIS W INDICATIONS: IV only, abd pain rlq CONTRAST: Omni 300 100ml TECHNIQUE: After the administration of IV contrast, 5 mm thick sections acquired from the diaphragms to the symp hysis. 5 mm thick coronal and sagittal reformats were acquired. For radiation dose reduction, the f ollowing was used: automated exposure control, adjustment of mA and/or kV according to patient size. COMPARISON: None FINDINGS: Image quality: Good Lower chest: Multifocal eventration of the diaphragm. Suspected emphysematous changes and basal scarr ing/atelectasis. A subpleural nodule measuring 4 mm is seen at the left costophrenic angle, for which follow-up imaging is optional for high-risk patients. Patulous distal esophagus and possible tiny hi atal hernia. Solid organs: Multiple liver cysts. Subcentimeter lesions are too small to characterize. Gallbladder is not seen. CBD is prominent, possibly related to absence of gallbladder, measuring up to 8 mm. No p athologic pancreatic ductal dilation. No splenomegaly. Multifocal adrenal nodularity, particularly on the left. No hydronephrosis. Vessels and lymph nodes: The main portal vein is patent. No abdominal aortic aneurysm. No pathologic lymph nodes by size criteria. Bowel and peritoneum: No evidence of small bowel obstruction. No pathologic ascites or drainable absc ess. Colonic diverticulosis. Appendix is normal. Moderate fecal loading. Body wall: Possible tiny right fat-containing inguinal hernia. No drainable fluid collection. Pelvis: Reproductive organs not well evaluated on CT. Uterus is absent. Bladder is underdistended and not well seen. Bones: Degenerative changes, no acute or suspicious osseous finding. IMPRESSION: No acute bowel obstruction. Appendix is normal. Moderate fecal loading. Colonic diverticulosis. No ab scess or pathologic ascites. Possible tiny right inguinal hernia containing fat. Multifocal adrenal nodularity, particularly on the left, consider follow-up nonemergent adrenal win col CT or MRI. Other incidental and likely nonacute findings described above. Reviewed by: Uriel Velez MD on 04/07/2023 1:12 PM PDT Approved by: Uriel Velez MD on 04/07/2023 1:12 PM PDT Station ID: [id number]
[2023-04-07 13:58] VITALS: BP 161/87
[2023-04-07] MEDS: iohexoL-300 100 ML VIAL IVP ONE (14:19)
== END 2023-04-07 13:57 | disposition home or self-care (01) ==
LOC: ED 10:38
DX: K59.00 Constipation, unspecified (principal); R10.32 Left lower quadrant pain; F17.200 Nicotine dependence, unspecified, uncomplicated; I10 Essential (primary) hypertension; J44.9 Chronic obstructive pulmonary disease, unspecified; Z79.82 Long term (current) use of aspirin; Z79.899 Other long term (current) drug therapy
CPT/HCPCS: 36415; 80053; 81001; 81003; 83690; 85025; 87086; 99284

== ENCOUNTER 2023-12-04 08:42 | Outpatient (CLI) | payer MEDICARE ==
[2023-12-04 12:43] LABS: CALCIUM 9.8 mg/dL (8.5-10.3); CREATININE 0.7 mg/dL (0.6-1.3); POTASSIUM 3.8 mmol/L (3.5-4.5)
== END 2023-12-04 08:43 | disposition home or self-care (01) ==
LOC: LAB.N 08:42
PROVIDERS: ATTEND Family Medicine
DX: I10 Essential (primary) hypertension (principal); E87.6 Hypokalemia
CPT/HCPCS: 36415; 80048

== ENCOUNTER 2024-04-05 07:28 | Outpatient (CLI) | payer MEDICARE ==
[2024-04-05 12:31] LABS: ALBUMIN 4.6 g/dL (3.2-5.5); ALBUMIN/GLOBULIN RATIO 1.6 (1.0-2.2); ALKALINE PHOSPHATASE 61 IU/L (42-121); ALT ALANINE AMINOTRANSFERASE 11 IU/L (10-60); AST ASPARTATE AMINOTRANSFERASE 17 IU/L (10-42); BILIRUBIN,TOTAL 1.1 mg/dL (0.2-1.0); BUN - BLOOD UREA NITROGEN 10 mg/dL (6-20); CALCIUM 9.8 mg/dL (8.5-10.3); CARBON DIOXIDE - CO2 32 mmol/L (21-32); CHLORIDE 103 mmol/L (101-111); CHOL/HDL RATIO 2.5 (<4.4); CHOLESTEROL 164 mg/dL; CREATININE 0.7 mg/dL (0.6-1.3); GFR - MDRD 81 (>89); GLUCOSE 108 mg/dL (74-104); HDL CHOLESTEROL 65 mg/dL; LDL CHOLESTEROL,CALCULATED 78 mg/dL; LDL/HDL RATIO 1.2 (<4.4); POTASSIUM 3.5 mmol/L (3.5-4.5); SODIUM 141 mmol/L (135-145); TOTAL PROTEIN 7.4 g/dL (6.4-8.9); TRIGLYCERIDES 106 mg/dL; VLDL CHOLESTEROL 21 mg/dL
[2024-04-05 12:32] LABS: BASOPHILS # (AUTO) 0.1 10^3/uL (0.0-0.1); EOSINOPHILS # (AUTO) 0.6 10^3/uL (0.0-0.7); EOSINOPHILS % (AUTO) 12.2 %; HCT - HEMATOCRIT 40.7 % (37.0-47.0); HGB - HEMOGLOBIN 14.2 g/dL (12.0-16.0); LYMPHOCYTES # (AUTO) 2.3 10^3/uL (1.5-3.5); LYMPHOCYTES % (AUTO) 47.7 %; MEAN CORPUSCULAR HEMOGLOBIN 23.7 pg (27.0-31.0); MEAN CORPUSCULAR HGB CONC 34.9 g/dL (32.0-36.0); MEAN CORPUSCULAR VOLUME 68.1 fL (81.0-99.0); MONOCYTES # (AUTO) 0.6 10^3/uL (0.0-1.0); MONOCYTES % (AUTO) 12.6 %; NEUTROPHILS # (AUTO) 1.2 10^3/uL (1.5-6.6); NEUTROPHILS % (AUTO) 25.3 %; PLT - PLATELET COUNT 302 10^3/uL (130-450); RED BLOOD COUNT 5.98 10^6/uL (4.20-5.40); RED CELL DISTRIBUTION WIDTH 17.2 % (12.0-15.0); WHITE BLOOD COUNT 4.9 x10^3/uL (4.8-10.8)
[2024-04-05 12:44] LABS: THYROID STIMULATING HORMONE 0.57 uIU/mL (0.34-5.60)
[2024-04-05 13:34] LABS: PLATELET ESTIMATE, MANUAL NORMAL (130-450,000) (NORMAL); PLATELET MORPHOLOGY NORMAL APPEARANCE (NORMAL); SLIDE REVIEW? Indicated
== END 2024-04-05 07:29 | disposition home or self-care (01) ==
LOC: LAB.N 07:28
PROVIDERS: ATTEND Family Medicine
DX: M54.16 Radiculopathy, lumbar region (principal); E87.6 Hypokalemia; F17.200 Nicotine dependence, unspecified, uncomplicated; J44.9 Chronic obstructive pulmonary disease, unspecified; I10 Essential (primary) hypertension; M47.9 Spondylosis, unspecified; K21.9 Gastro-esophageal reflux disease without esophagitis
CPT/HCPCS: 36415; 80053; 80061; 83721; 84443; 85025

== ENCOUNTER 2024-04-27 07:36 | Outpatient (CLI) | payer MEDICARE | END 2024-04-27 07:37 | disposition home or self-care (01) | LOC: LAB.R 07:36 | PROVIDERS: ATTEND Nurse Practitioner | DX: R21 Rash and other nonspecific skin eruption (principal); L21.8 Other seborrheic dermatitis | CPT/HCPCS: 87070; 87077; 87181; 87205 ==